=== PATIENT | female | born 1960 | race Caucasian/White ===

== ENCOUNTER 2024-02-15 07:02 | Day surgery (SDC) | payer BC ==
[2024-02-08 09:30] VITALS: BMI 30.9
[2024-02-15] MEDS ORDERED: Indocyanine Green 25 MG/10 ML VIAL ONE (08:13)
[2024-02-15] MEDS ORDERED: fentaNYL 50 mcg/mL 1 mL Vial ONE ×3 (08:32→10:34)
[2024-02-15] MEDS ORDERED: Rocuronium Bromide 10 MG/ML (10ML VIAL) ONE (08:32)
[2024-02-15] MEDS ORDERED: Lidocaine 1% PF 5 ML VIAL ONE (08:32)
[2024-02-15] MEDS ORDERED: PROPOFOL 20 ML ONE (08:32)
[2024-02-15] MEDS ORDERED: Bupivacaine/Epinephrine 0.25% 30 ML VIAL ONE (08:52)
[2024-02-15] MEDS ORDERED: CEFAZOLIN 2 GM VIAL ONE (08:52)
[2024-02-15] MEDS ORDERED: Ondansetron PF 4 MG/2 ML Vial ONE (09:21)
[2024-02-15] MEDS ORDERED: Dexamethasone 20 MG/5 ML VIAL ONE (09:21)
[2024-02-15] MEDS ORDERED: ePHEDrine Sulfate 50 MG/10 ML VIAL ONE (09:28)
[2024-02-15] MEDS ORDERED: Ketorolac Tromethamine 30 MG (1 mL) VIAL ONE (09:48)
[2024-02-15] MEDS ORDERED: SUGAMMADEX SODIUM 200 MG/2 ML VIAL ONE (09:48)
[2024-02-15] MEDS ORDERED: HYDROcodone/Acetaminophen 5/325 mg Tablet ONE (11:24)
== END 2024-02-15 12:15 | disposition home or self-care (01) ==
LOC: CSHSDC 07:02
PROVIDERS: ATTEND Surgery
PROC: 0FT44ZZ Resection of Gallbladder, Percutaneous Endoscopic Approach (ICD-10-PCS; principal; 2024-02-15)
DX: K80.10 Calculus of gallbladder with chronic cholecystitis without obstruction (principal); M54.16 Radiculopathy, lumbar region; E78.5 Hyperlipidemia, unspecified; Z88.8 Allergy status to other drugs, medicaments and biological substances; Z96.651 Presence of right artificial knee joint
CPT/HCPCS: 88304; C1889; J1100; J1885; J2405; J2704; J3010